=== PATIENT | female | born 1970 | race Caucasian/White ===

== ENCOUNTER → 2020-10-20 11:45 | Outpatient (CLI) | payer OTHER, SELFPAY ==
--- NOTE | 2020-10-20 | DI.MG.S_ITS ---
BILATERAL DIGITAL SCREENING MAMMOGRAM 3D/2D WITH CAD: 10/20/2020 CLINICAL: Routine screening. Comparison is made to exams dated: 10/05/2017 mammogram, 10/05/2018 mammogram, and 09/25/2019 mammogram - outside location. The tissue of both breasts is predominantly fatty. Current study was also evaluated with a Computer Aided Detection (CAD) system. No significant masses, calcifications, or other findings are seen in either breast. There has been no significant interval change. IMPRESSION: NEGATIVE There is no mammographic evidence of malignancy. A 1 year screening mammogram is recommended. This exam was interpreted at Station ID: [id number]. NOTE: For mammograms, a report in lay terms will be sent to the patient. Approximately 15% of breast malignancies will not be visualized mammographically. In the management of a palpable breast mass, a negative mammogram must not discourage biopsy of a clinically suspicious lesion. Electronically Signed By: David clark/cecile:10/20/2020 17:34:10 letter sent: Normal Exam ACR BI-RADS Category 1: Negative 3341F
== END ==
PROVIDERS: PCP Family Medicine; Referring Provider Family Medicine; Visit Provider Family Medicine
DX: Z12.31 Encounter for screening mammogram for malignant neoplasm of breast (principal)
CPT/HCPCS: 77063; 77067

== ENCOUNTER → 2020-11-04 14:31 | Outpatient (CLI) | payer OTHER, SELFPAY ==
[2020-11-04 15:32] LABS: COVID19 -Nasal RAPID Negative (Negative)
== END ==
PROVIDERS: PCP Family Medicine; Visit Provider Specialist
DX: Z20.822 Contact with and (suspected) exposure to COVID-19 (principal)
CPT/HCPCS: 87635; C9803

== ENCOUNTER 2020-11-06 07:26 | Day surgery (SDC) | payer OTHER, SELFPAY ==
--- NOTE | 2020-11-06 | PATH_ITS ---
[facility] Accession Number: [id number] . 01 Material submitted: . PART A: colon - POLYP AT 15 CM PART B: colon - TISSUE NEAR ANUS . 01 Clinical history: . SCREENING COLONOSCOPY . 02 Diagnosis: A. Colon Polyp at 15 cm, Biopsy: Hyperplastic polyp. . B. Tissue Near Anus, Biopsy: Colonic mucosa with focal mucosal hyperplasia and prominent benign lymphoid aggregates. Negative for active or microscopic colitis. Negative for granulomata, dysplasia or malignancy. MRV 11/11/2020 1046 Local . 02 Electronically signed: . Shane Esquivel MD, PhD, Pathologist NPI- [id number] . 01 Gross description: . Part A: POLYP AT 15 CM: Received in formalin is 1 fragment(s) of hackett, soft tissue measuring 0.3 x 0.2 x 0.2 cm submitted entirely in 1 cassette(s) Part B: TISSUE NEAR ANUS: Received in formalin are 4 fragment(s) of hackett, soft tissue measuring 0.1 x 0.1 x 0.1 cm to 0.2 x 0.2 x 0.2 cm submitted entirely in 1 cassette(s) /LUBA 11/07/20202036 Local . 02 Pathologist provided ICD-10: K63.5 . 02 CPT . 848994, 125360 Performed at: 01 [facility] [address], [place], [place] [id number] MD Nacho Rodriges MD Phone: [phone] Performed at: 02 [facility] [address] [place], [place] [id number] MD Amy Castillo MD Phone: [phone]
[2020-11-06] MEDS: LACTATED RINGERS 1,000 ML 100 ML IV (07:47)
[2020-11-06 07:48] VITALS: BP 130/85; PULSE 78; RESP 16; TEMP 36.6; O2SAT 96; BMI 39.3
--- NOTE | 2020-11-06 08:26 | PM.HP.1 ---
History of Present Illness History of Present Illness Date Patient Seen: 11/06/20 Time Patient Seen: 08:26 Chief complaint: SCREENING COLONOSCOPY Narrative: The patient is a woman who has never had a colonoscopy. She turn 50 and is here for screening exam. No family history. Patient History Medical History Hypertension Hypothyroid Family & Social History Social History: household members spouse,children Tobacco & Substance use: Smoking Status Never smoker alcohol intake current alcohol intake frequency holiday/special occasion Substance Use Type does not use Meds Home Medications and Allergies Home Medications Medication Instructions Recorded Confirmed Type cholecalciferol (vitamin D3) 100 mcg PO DAILY 11/06/20 11/06/20 History [Vitamin D3] hydrochlorothiazide 12.5 mg PO DAILY 11/06/20 11/06/20 History levothyroxine [Synthroid] 88 mcg PO DAILY 11/06/20 11/06/20 History lisinopril 10 mg PO DAILY 11/06/20 11/06/20 History multivitamin 1 tab PO DAILY 11/06/20 11/06/20 History Allergies Allergy/AdvReac Type Severity Reaction Status Date / Time No Known Drug Allergies Allergy Verified 11/06/20 07:39 Review of Systems Review of Systems ROS: Yes All systems reviewed with the patient and are negative except as otherwise documented Exam Vital Signs (past 8 hours): - 11/06/20 07:48 Temperature 97.8 F Pulse Rate 78 Respiratory Rate 16 Blood Pressure 130/85 Pulse Oximetry 96 Oxygen Delivery Method Room Air Narrative Exam Narrative: Pleasant cooperative patient no apparent distress. Lungs are clear to auscultation. No rales or rhonchi. Heart regular rate and rhythm no murmur gallop. Abdomen is soft nontender without mass. No obvious hernias. Patient is alert and oriented x3. Assessment & Plan Assessment & Plan narrative: The patient for a screening colonoscopy. I have discussed the procedure with them. Risks of bleeding, perforation which would necessitate major operation, failure to find remove all lesions, the potential tattoo were all discussed. All questions were answered. They wished to proceed.
--- NOTE | 2020-11-06 08:28 | PM.PREOP ---
Pre-operative Note COVID-19 COVID-19 status: Negative Result date/Date tested (Pos, Neg/Pending): 11/05/20 Interval Note History & Physical reviewed/Exam performed by Physician: Yes Changes to H&P: No ASA Class (for procedural sedation): II
--- NOTE | 2020-11-06 09:04 | P.OP.ENDO_ITS ---
Operative Date/Time/Diagnoses Date of procedure: 11/06/20 Time of procedure: 09:04 Pre-op diagnosis: Screening exam. This is her 1st colonoscopy. She is 50. Post-op diagnosis: same (Small polyp at 15 cm from the anal verge. Slight irregularity at tissue near the anal verge which was biopsied as well.) Procedure & Clinicians Study performed: Colonoscopy with cold biopsy Same procedure as scheduled: Yes Indications: Screening exam Surgeon: Grabiel Adam Procedure Notes SCOAP/Timeout: Performed Procedure in detail: The patient was placed in the left lateral decubitus position and underwent IV sedation directed by the surgeon consisting of fentanyl and Versed. Digital exam was unremarkable. The scope was inserted and advanced through the rectum into the sigmoid, descending, transverse, and ascending colon. No lesions were seen . The cecum was reached identified by the ileocecal valve and the appendiceal opening. The ileocecal valve was successfully cannulated. The terminal ileum was normal in appearance. The scope was gradually brought out. One tiny Polyp was found at 15 cm from anal verge. This was biopsied and removed.. The scope ultimately was retroflexed in the rectum. The appearance was remarkable for some irregularity which is probably just due to trauma from the prep. However I biopsy to make sure that is the case.. The scope was removed and the patient tolerated the procedure w ell. The prep was excellent Scope withdrawal time: 7 minutes(9 total) Sedation minutes: 26 Findings: polyp (One tiny polyp) Specimen(s): other (Polyp. Tissue near the anal verge.) Complications: none Post-procedure Recommendations: Colonscopy in 5 years (If the polyp is not adenomatous when reviewed by the pathologist 10 years would be more appropriate.) Follow up: as needed Disposition: PACU
[2020-11-06] MEDS: fentaNYL 250 MCG/5 ML INJ IV (09:05)
[2020-11-06] MEDS: MIDAZOLAM 5 MG/5 ML VIAL IV (09:05)
[2020-11-06 09:07] VITALS: BP 131/81; PULSE 84; RESP 16; TEMP 36.8; O2SAT 96
[2020-11-06 09:12] VITALS: BP 130/74; PULSE 73; RESP 12; O2SAT 97
[2020-11-06 09:17] VITALS: BP 127/73; PULSE 69; RESP 18; O2SAT 95
[2020-11-06 09:25] VITALS: BP 140/74; PULSE 70; RESP 18; TEMP 36.6; O2SAT 97
== END 2020-11-06 09:37 | disposition home or self-care (01) ==
PROVIDERS: PCP Family Medicine; Referring Provider Family Medicine; Visit Provider Specialist
PROC: 0DJD8ZZ Inspection of Lower Intestinal Tract, Via Natural or Artificial Opening Endoscopic (ICD-10-PCS; CPT 45378; principal; 2020-11-06 08:30)
DX: Z12.11 Encounter for screening for malignant neoplasm of colon (principal); I10 Essential (primary) hypertension; E03.9 Hypothyroidism, unspecified; K63.5 Polyp of colon
CPT/HCPCS: 45380; 99152; J2250; J3010

== ENCOUNTER → 2021-09-29 16:48 | Outpatient (CLI) | payer OTHER, SELFPAY ==
--- NOTE | 2021-09-29 16:49 | DI.MG.S_ITS ---
BILATERAL DIGITAL SCREENING MAMMOGRAM 3D/2D WITH CAD: 09/29/2021 CLINICAL: Routine screening. Comparison is made to exams dated: 10/20/2020 mammogram - [facility], 09/25/2019 mammogram, and 10/05/2018 mammogram - outside location. The tissue of both breasts is predominantly fatty. Current study was also evaluated with a Computer Aided Detection (CAD) system. No significant masses, calcifications, or other findings are seen in either breast. There has been no significant interval change. IMPRESSION: NEGATIVE There is no mammographic evidence of malignancy. A 1 year screening mammogram is recommended. This exam was interpreted at Station ID: [id number]. NOTE: For mammograms, a report in lay terms will be sent to the patient. Approximately 15% of breast malignancies will not be visualized mammographically. In the management of a palpable breast mass, a negative mammogram must not discourage biopsy of a clinically suspicious lesion. Electronically Signed By: Wm Mckeon M.D. at/cecile:09/30/2021 07:07:58 letter sent: Normal Exam ACR BI-RADS Category 1: Negative 3341F
== END ==
PROVIDERS: PCP Family Medicine; Referring Provider Family Medicine; Visit Provider Family Medicine
DX: Z12.31 Encounter for screening mammogram for malignant neoplasm of breast (principal)
CPT/HCPCS: 77063; 77067

== ENCOUNTER → 2022-07-24 08:14 | Outpatient (CLI) | payer OTHER, SELFPAY ==
[2022-07-24 09:25] LABS: Hematocrit 40.4 % (36-46); Hemoglobin 13.8 g/dL (12.0-16.0); Mean Corpuscular Hemoglobin 29.9 PG (26-34); Mean Corpuscular Volume 87.9 fL (80-100); Platelet Count 301 X10^3/uL (150-400); White Blood Cell Count 6.8 X10^3/uL (4.5-11.0)
[2022-07-24 09:46] LABS: Alanine Aminotransferase 68 IU/L (<35); Albumin 4.5 g/dL (3.5-5.0); Albumin Globulin Ratio 1.2 (1.0-2.8); Alkaline Phosphatase 79 U/L (38-126); Aspartate Aminotransferase 53 IU/L (14-36); Bilirubin Total 0.5 mg/dL (0.2-1.3); Blood Urea Nitrogen 13 mg/dL (7-17); Calcium 9.4 mg/dL (8.4-10.2); Carbon Dioxide 26 mmol/L (22-32); Chloride 100 mmol/L (98-107); Cholesterol 184 mg/dL (140-199); Estimated Glomerular Filt Rate > 60 mL/min (>60); Globulin 3.8 g/dL (1.7-4.1); Glucose 102 mg/dL (70-100); HDL Cholesterol 43 mg/dL (40-60); HEMOLYSIS < 15 (0-50); LDL Cholesterol Calculated 118 mg/dL (<100); Potassium 4.4 mmol/L (3.4-5.1); Sodium 136 mmol/L (137-145); Total Protein 8.3 g/dL (6.3-8.2); Triglycerides 116 mg/dL (35-150)
[2022-07-24 10:17] LABS: TSH w/ Reflex to FT4 0.83 uIU/mL (0.47-4.68)
== END ==
PROVIDERS: PCP Registered Nurse Diabetes Educator; Referring Provider Registered Nurse Diabetes Educator; Visit Provider Registered Nurse Diabetes Educator
DX: E03.9 Hypothyroidism, unspecified (principal); I10 Essential (primary) hypertension
CPT/HCPCS: 36415; 80053; 80061; 84443; 85027

== ENCOUNTER → 2022-09-30 16:38 | Outpatient (CLI) | payer OTHER, SELFPAY ==
--- NOTE | 2022-09-30 16:39 | DI.MG.S_ITS ---
BILATERAL DIGITAL SCREENING MAMMOGRAM 3D/2D WITH CAD: 09/30/2022 CLINICAL: Routine screening. Comparison is made to exams dated: 09/29/2021 mammogram, 10/20/2020 mammogram - [facility], and 09/25/2019 mammogram - outside location. Both breasts are almost entirely fatty (category a/<25% glandular tissue). Current study was also evaluated with a Computer Aided Detection (CAD) system. No significant masses, calcifications, or other findings are seen in either breast. There has been no significant interval change. IMPRESSION: NEGATIVE There is no mammographic evidence of malignancy. A 1 year screening mammogram is recommended. Based on the Tyrer Cuzick model (a risk assessment model) the patient's lifetime risk is 2.9% and her 10 year risk is 0.7%. According to the ACR, ACS, and NCCN guidelines, an annual breast MRI exam along with mammogram is recommended if the patient's lifetime risk is 20% or greater. This exam was interpreted at Station ID: [id number]. NOTE: For mammograms, a report in lay terms will be sent to the patient. Approximately 15% of breast malignancies will not be visualized mammographically. In the management of a palpable breast mass, a negative mammogram must not discourage biopsy of a clinically suspicious lesion. Electronically Signed By: Dulce Maria garcia/cecile:10/01/2022 09:47:32 letter sent: Normal Exam ACR BI-RADS Category 1: Negative 3341F
== END ==
PROVIDERS: PCP Registered Nurse Diabetes Educator; Referring Provider Registered Nurse Diabetes Educator; Visit Provider Registered Nurse Diabetes Educator
DX: Z12.31 Encounter for screening mammogram for malignant neoplasm of breast (principal)
CPT/HCPCS: 77063; 77067

== ENCOUNTER → 2023-10-04 15:37 | Outpatient (CLI) | payer OTHER, SELFPAY ==
--- NOTE | 2023-10-04 | DI.MG.S_ITS ---
BILATERAL DIGITAL SCREENING MAMMOGRAM 3D/2D WITH CAD: 10/04/2023 CLINICAL: Routine screening. Comparison is made to exams dated: 09/30/2022 mammogram, 09/29/2021 mammogram, and 10/20/2020 mammogram - [facility]. Both breasts are almost entirely fatty (category a/<25% glandular tissue). Current study was also evaluated with a Computer Aided Detection (CAD) system. No significant masses, calcifications, or other findings are seen in either breast. There has been no significant interval change. IMPRESSION: NEGATIVE There is no mammographic evidence of malignancy. A 1 year screening mammogram is recommended. Based on the Tyrer Cuzick model (a risk assessment model) the patient's lifetime risk is 2.9% and her 10 year risk is 0.8%. According to the ACR, ACS, and NCCN guidelines, an annual breast MRI exam along with mammogram is recommended if the patient's lifetime risk is 20% or greater. This exam was interpreted at Station ID: [id number]. NOTE: For mammograms, a report in lay terms will be sent to the patient. Approximately 15% of breast malignancies will not be visualized mammographically. In the management of a palpable breast mass, a negative mammogram must not discourage biopsy of a clinically suspicious lesion. Electronically Signed By: Dulce Maria garcia/cecile:10/05/2023 14:17:33 letter sent: Normal Exam ACR BI-RADS Category 1: Negative 3341F
== END ==
PROVIDERS: PCP Registered Nurse Diabetes Educator; Referring Provider Registered Nurse Diabetes Educator; Visit Provider Registered Nurse Diabetes Educator
DX: Z12.31 Encounter for screening mammogram for malignant neoplasm of breast (principal)
CPT/HCPCS: 77063; 77067

== ENCOUNTER → 2023-12-03 07:51 | Outpatient (CLI) | payer OTHER, SELFPAY ==
[2023-12-03 08:32] LABS: Hematocrit 41.5 % (36-46); Hemoglobin 14.3 g/dL (12.0-16.0); Mean Corpuscular HGB Conc 34.4 % (30-36); Mean Corpuscular Hemoglobin 30.1 PG (26-34); Mean Corpuscular Volume 87.6 fL (80-100); Platelet Count 287 X10^3/uL (150-400); Red Blood Cell Count 4.74 X10^6/uL (4.0-5.2); Red Cell Distribution Width 13.4 % (11.6-14.8); White Blood Cell Count 6.1 X10^3/uL (4.5-11.0)
[2023-12-03 08:46] LABS: Alanine Aminotransferase 68 IU/L (<35); Albumin 4.5 g/dL (3.5-5.0); Albumin Globulin Ratio 1.3 (1.0-2.8); Alkaline Phosphatase 78 U/L (38-126); Aspartate Aminotransferase 52 IU/L (14-36); BUN Creatinine Ratio 18.8 (6-22); Bilirubin Total 0.6 mg/dL (0.2-1.3); Blood Urea Nitrogen 13 mg/dL (7-17); Calcium 9.6 mg/dL (8.4-10.2); Carbon Dioxide 24 mmol/L (22-32); Chloride 101 mmol/L (98-107); Cholesterol 195 mg/dL (140-199); Estimated Glomerular Filt Rate > 60 mL/min (>60); Globulin 3.6 g/dL (1.7-4.1); Glucose 93 mg/dL (70-100); HDL Cholesterol 54 mg/dL (40-60); HEMOLYSIS < 15 (0-50); LDL Cholesterol Calculated 119 mg/dL (<100); Potassium 4.6 mmol/L (3.4-5.1); Sodium 135 mmol/L (137-145); Total Protein 8.1 g/dL (6.3-8.2); Triglycerides 112 mg/dL (35-150)
[2023-12-03 09:00] LABS: Free T4, Direct Thyroxine 1.15 ng/dL (0.78-2.19)
[2023-12-03 09:14] LABS: Thyroid Stimulating Hormone 0.634 uIU/mL (0.47-4.68)
[2023-12-04 05:11] LABS: x Labcorp Estim. Avg Glu (eAG) 126 mg/dL (.)
== END ==
LOC: LAB 07:53
PROVIDERS: PCP Registered Nurse Diabetes Educator; Referring Provider Registered Nurse Diabetes Educator; Visit Provider Registered Nurse Diabetes Educator
DX: E03.9 Hypothyroidism, unspecified (principal); I10 Essential (primary) hypertension; E78.5 Hyperlipidemia, unspecified
CPT/HCPCS: 36415; 80053; 80061; 83036; 84439; 84443; 85027

== ENCOUNTER → 2024-10-05 15:32 | Outpatient (CLI) | payer OTHER, SELFPAY ==
--- NOTE | 2024-10-05 15:33 | DI.MG.S_ITS ---
BILATERAL DIGITAL SCREENING MAMMOGRAM 3D/2D WITH CAD: 10/05/2024 CLINICAL: Routine screening. Comparison is made to exams dated: 10/04/2023 mammogram, 09/30/2022 mammogram, and 09/29/2021 mammogram - [facility]. The breasts are almost entirely fatty (category a/<25% glandular tissue). Current study was also evaluated with a Computer Aided Detection (CAD) system. No significant masses, calcifications, or other findings are seen in either breast. There has been no significant interval change. IMPRESSION: NEGATIVE There is no mammographic evidence of malignancy. A 1 year screening mammogram is recommended. Based on the Tyrer Cuzick model (a risk assessment model) the patient's lifetime risk is 2.9% and her 10 year risk is 0.8%. According to the ACR, ACS, and NCCN guidelines, an annual breast MRI exam along with mammogram is recommended if the patient's lifetime risk is 20% or greater. This exam was interpreted at Station ID: [id number]. NOTE: For mammograms, a report in lay terms will be sent to the patient. Approximately 15% of breast malignancies will not be visualized mammographically. In the management of a palpable breast mass, a negative mammogram must not discourage biopsy of a clinically suspicious lesion. Electronically Signed By: Dulce Maria garcia/cecile:10/05/2024 17:18:19 letter sent: Normal Exam ACR BI-RADS Category 1: Negative
== END ==
PROVIDERS: PCP Registered Nurse Diabetes Educator; Referring Provider Registered Nurse Diabetes Educator; Visit Provider Registered Nurse Diabetes Educator
DX: Z12.31 Encounter for screening mammogram for malignant neoplasm of breast (principal); R92.313 Mammographic fatty tissue density, bilateral breasts
CPT/HCPCS: 77063; 77067

== ENCOUNTER → 2025-02-16 08:01 | Outpatient (CLI) | payer OTHER, SELFPAY ==
[2025-02-16 08:55] LABS: Hematocrit 42.9 % (36-46); Hemoglobin 14.7 g/dL (12.0-16.0); Mean Corpuscular HGB Conc 34.3 % (30-36); Mean Corpuscular Hemoglobin 30.3 PG (26-34); Mean Corpuscular Volume 88.4 fL (80-100); Platelet Count 308 X10^3/uL (150-400); Red Blood Cell Count 4.86 X10^6/uL (4.0-5.2); Red Cell Distribution Width 13.4 % (11.6-14.8); White Blood Cell Count 7.1 X10^3/uL (4.5-11.0)
[2025-02-16 09:11] LABS: Hemoglobin A1C% w Est Avg Glu 5.4 % (4.0-6.0)
[2025-02-16 09:26] LABS: Alanine Aminotransferase 75 IU/L (<35); Albumin 4.7 g/dL (3.5-5.0); Albumin Globulin Ratio 1.4 (1.0-2.8); Alkaline Phosphatase 78 U/L (38-126); Aspartate Aminotransferase 65 IU/L (14-36); Bilirubin Total 0.7 mg/dL (0.2-1.3); Blood Urea Nitrogen 14 mg/dL (7-17); Calcium 10.1 mg/dL (8.4-10.2); Carbon Dioxide 23 mmol/L (22-32); Chloride 102 mmol/L (98-107); Cholesterol 219 mg/dL (140-199); Estimated Glomerular Filt Rate > 60 mL/min (>60); Globulin 3.3 g/dL (1.7-4.1); Glucose 101 mg/dL (70-99); HDL Cholesterol 53 mg/dL (40-60); HEMOLYSIS < 15 (0-50); LDL Cholesterol Calculated 135 mg/dL (<100); Potassium 4.6 mmol/L (3.4-5.1); Sodium 136 mmol/L (137-145); Triglycerides 156 mg/dL (35-150)
[2025-02-16 09:55] LABS: TSH w/ Reflex to FT4 1.88 uIU/mL (0.47-4.68)
== END ==
LOC: LAB 08:01
PROVIDERS: PCP Registered Nurse Diabetes Educator; Referring Provider Registered Nurse Diabetes Educator; Visit Provider Registered Nurse Diabetes Educator
DX: E78.5 Hyperlipidemia, unspecified (principal); K76.0 Fatty (change of) liver, not elsewhere classified; E03.9 Hypothyroidism, unspecified; I10 Essential (primary) hypertension; R73.01 Impaired fasting glucose
CPT/HCPCS: 36415; 80053; 80061; 83036; 84443; 85027

== ENCOUNTER → 2025-08-30 15:29 | Outpatient (CLI) | payer OTHER, SELFPAY ==
[2025-08-30 17:02] LABS: Blood Urea Nitrogen 16 mg/dL (7-17); Calcium 9.5 mg/dL (8.4-10.2); Carbon Dioxide 26 mmol/L (22-32); Chloride 97 mmol/L (98-107); Estimated Glomerular Filt Rate > 60 mL/min (>60); Glucose 98 mg/dL (70-99); HEMOLYSIS < 15 (0-50); Potassium 3.1 mmol/L (3.4-5.1); Sodium 134 mmol/L (137-145)
== END ==
LOC: LAB 15:32
PROVIDERS: PCP Registered Nurse Diabetes Educator; Referring Provider Registered Nurse Diabetes Educator; Visit Provider Registered Nurse Diabetes Educator
DX: I10 Essential (primary) hypertension (principal)
CPT/HCPCS: 36415; 80048

== ENCOUNTER → 2025-10-11 15:32 | Outpatient (CLI) | payer OTHER, SELFPAY ==
[2025-10-11 18:37] LABS: Blood Urea Nitrogen 14 mg/dL (7-17); Calcium 9.5 mg/dL (8.4-10.2); Carbon Dioxide 23 mmol/L (22-32); Chloride 95 mmol/L (98-107); Estimated Glomerular Filt Rate > 60 mL/min (>60); Glucose 91 mg/dL (70-99); HEMOLYSIS < 15 (0-50); Potassium 3.6 mmol/L (3.4-5.1); Sodium 130 mmol/L (137-145)
== END ==
PROVIDERS: PCP Registered Nurse Diabetes Educator; Referring Provider Registered Nurse Diabetes Educator; Visit Provider Registered Nurse Diabetes Educator
DX: I10 Essential (primary) hypertension (principal); E87.6 Hypokalemia
CPT/HCPCS: 36415; 80048